=== PATIENT | female | born 1990 | race Caucasian/White ===

== ENCOUNTER 2016-11-10 12:04 | Emergency (ER) | payer OTHER, MEDICAID ==
[~2016-11-10] VITALS: Ht 172.7 cm; Wt 68.0 kg
[~2016-11-10 12:04] MED LIST: CITA20TA4 PO; CLOT1CRE6 TOPICAL
[2016-11-10 12:17] VITALS: BP 129/75; PULSE 81; RESP 16; TEMP 98.2; O2SAT 98
[2016-11-10] MEDS ORDERED: ORPHENADRINE INJ 60 MG/2 ML AMP IM ONE (12:45)
[2016-11-10] MEDS ORDERED: ONDANSETRON ODT 4 MG TAB PO ONE (12:45)
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
[2016-11-10] MEDS ORDERED: CYCL1TAB29 PO (14:34)
[2016-11-10] MEDS ORDERED: ZOFR4TAB3 SL (14:34)
[2016-11-10] MEDS ORDERED: IBUP800T23 PO (14:34)
[2016-11-10] MEDS ORDERED: KETOROLAC TROMETHAMINE 60 MG/2 ML (IM) VIAL IM ONE (14:45)
== END 2016-11-10 15:00 | disposition home or self-care (01) ==
LOC: NEPD 12:04
DX: S39.012A Strain of muscle, fascia and tendon of lower back, initial encounter (principal); R51 Headache; S16.1XXA Strain of muscle, fascia and tendon at neck level, initial encounter; V47.5XXA Car driver injured in collision with fixed or stationary object in traffic accident, initial encounter
CPT/HCPCS: 70450; 84703; 96372; 99285; J2360

== ENCOUNTER 2017-06-15 18:01 | Emergency (ER) | payer OTHER ==
[~2017-06-15] VITALS: Ht 172.7 cm; Wt 73.0 kg
[~2017-06-15 18:01] MED LIST changes: -CLOT1CRE6 TOPICAL; +METR-1 PO
[2017-06-15 18:02] VITALS: BP 138/77; PULSE 120; RESP 18; TEMP 99.6; O2SAT 99
[2017-06-15] MEDS ORDERED: ACETAMINOPHEN 325 MG TAB PO ONE (20:00)
--- NOTE | 2017-06-15 21:03 | PD ---
HPI Chief Complaint: Cold / Flu Symptoms Time Seen by Provider: 19:50 Travel History International Travel<30 days: No Contact w/Intl Traveler<30days: No Traveled to known affect area: No History of Present Illness HPI 26-year-old female presents to emergency department for feeling drowsy, feverish and achy since this afternoon. Patient states that she also has developed a nonproductive cough and headache. Says that she felt fine earlier today but has developed the symptoms over the last day. Patient states that her child goes to daycare and she has been around some sick people. States that her temperature was at 102 but she has taken Tylenol with significant relief. Patient denies chest pain, shortness of breath. Denies nausea, vomiting or diarrhea. Denies chronic medical issues medication use. PFSH Past Medical History Depression: Yes Diminished Hearing: No Psychiatric: Yes ?: Not LMP: IUD IN PLACE : 2 Para: 2 Past Surgical History Tonsillectomy: Yes (T & A) Other Surgery: Yes (nasal polyups removed) Social History Alcohol Use: Yes (on occasion) Tobacco Use: No Substance Use: No Allergies-Medications (Allergen,Severity, Reaction): Coded Allergies: No Known Allergies (Unverified , 01/01/17) Reported Meds & Prescriptions Reported Meds & Active Scripts Active Tamiflu (Oseltamivir Phosphate) 75 Mg Cap 75 Mg PO BID 5 Days Citalopram (Citalopram Hydrobromide) 20 Mg Tab 20 Mg PO DAILY Flagyl (Metronidazole) 500 Mg Tab 500 Mg PO BID Review of Systems Except as stated in HPI: all other systems reviewed are Neg Physical Exam Narrative GENERAL: Well-developed well-nourished in no apparent distress SKIN: Focused skin assessment warm/dry. Patient feels warmer than usual HEAD: Atraumatic. Normocephalic. EYES: Pupils equal and round. No scleral icterus. No injection or drainage. ENT: No nasal bleeding or discharge. Mucous membranes pink and moist. NECK: Trachea midline. No JVD. No lymphadenopathy CARDIOVASCULAR: Regular rate and rhythm. No murmur appreciated. RESPIRATORY: No accessory muscle use. Clear to auscultation. Breath sounds equal bilaterally. No rales, rhonchi, or wheezing. GASTROINTESTINAL: Abdomen soft, non-tender, nondistended. MUSCULOSKELETAL: No obvious deformities. No clubbing. No cyanosis. No edema. NEUROLOGICAL: Awake and alert. No obvious cranial nerve deficits. Motor grossly within normal limits. Normal speech. PSYCHIATRIC: Appropriate mood and affect; insight and judgment normal. Data Data Last Documented VS Vital Signs Date Time Temp Pulse Resp B/P (MAP) Pulse Ox O2 Delivery O2 Flow Rate FiO2 06/15/17 21:07 06/15/17 18:02 99.6 120 18 99 Room Air Orders Orders Influenzae A/B Antigen (06/15/17 19:55) Acetaminophen (Tylenol) (06/15/17 20:00) Ed Discharge Order (06/15/17 21:07) MDM Medical Decision Making Medical Screen Exam Complete: Yes Emergency Medical Condition: Yes Differential Diagnosis Influenza, upper respiratory infection, bronchitis Narrative Course 26-year-old female presents to emergency department for feeling drowsy, feverish and achy since this afternoon. Patient states that she also has developed a nonproductive cough and headache. Says that she felt fine earlier today but has developed the symptoms over the last day. Patient states that her child goes to daycare and she has been around some sick people. States that her temperature was at 102 but she has taken Tylenol with significant relief. Patient denies chest pain, shortness of breath. Denies nausea, vomiting or diarrhea. Denies chronic medical issues medication use. Vital signs- tachycardic at 120, appropriate for her illness Physical exam findings non toxic appearing female with clear rhinorrhea and occasional cough. Lungs clear to auscultation bilaterally Influenza positive. Patient will be prescribed Tamiflu. Advised patient to follow up with primary care physician. Encouraged adequate fluid intake with proper nutrition. Advised to return to the emergency department for worsening or persistent symptoms. Diagnosis Primary Impression: Influenza A Referrals: Primary Care Physician Additional Instructions: Take all medication as prescribed. Injury of an adequate fluid intake and nutrition diet. The Flu is contagious. Avoid unnecessary contact with others. Wear a mask if she must be around others. Scripts Oseltamivir (Tamiflu) 75 Mg Cap 75 MG PO BID for Mgmt Viral Infection for 5 Days, #10 CAP 0 Refills Prov: Clarissa Joya 06/15/17 Disposition: 01 DISCHARGE HOME Condition: Stable Clarissa Joya Jun 15, 2017 21:03
[2017-06-15] MEDS ORDERED: OSEL75 PO (21:07)
== END 2017-06-15 21:20 | disposition home or self-care (01) ==
LOC: NEPK 18:01
DX: J09.X2 Influenza due to identified novel influenza A virus with other respiratory manifestations (principal); R51 Headache; F32.9 Major depressive disorder, single episode, unspecified; Z79.899 Other long term (current) drug therapy
CPT/HCPCS: 87804; 99283